=== PATIENT | male | born 2000 | race Caucasian/White ===

== ENCOUNTER 2020-03-10 11:08 | Emergency (ER) | payer SELFPAY ==
[2020-03-10 11:18] VITALS: BP 170/95; PULSE 113; RESP 18; TEMP 36.6; O2SAT 98; BMI 35.9
--- NOTE | 2020-03-10 11:28 | W.ED.MALEGU ---
HPI - Male Genitourinary General: Chief complaint: Urogenital-Male Stated complaint: genital area bleeding Time Seen by Provider: 03/10/20 11:21 History of Present Illness: HPI Narrative: 20-year-old male complaining of blood in his underwear. He also noticed it when he wiped when he passes gas. Denies any dysuria urgency or frequency no pain with bowel movement or blood with bowel movement. He states this started about a week ago started draining last couple of days he has not had a fever does report quite a bit of discomfort for this is not had anything like it in the past. Been taking [id number] antipyretics and pain medications with moderate relief MD Complaint: other (Perirectal abscess) Onset (ago): week(s) (1) Duration: progressively worsening Severity: severe Quality: burning Exacerbating factors: palpation Associated symptoms: Reports discharge (Spontaneously open and draining); Deny dysuria, fevers/chills, nausea, rash or urinary incontinence Review of Systems Const: Denies: fever(s), chills, body aches, change in appetite, fatigue or malaise ENMT: Denies: throat pain, ear or mastoid pain, nasal discharge or nasal congestion Card: Denies: chest pain, edema, dyspnea on exertion or orthopnea Resp: Denies: dyspnea, productive cough or non-productive cough GI: Denies: nausea : Denies: dysuria or urinary incontinence Skin/Breast: Denies: rash or pruritus Physical Exam Const: COMMON NORMALS: no acute distress GENERAL APPEARANCE: cooperative and comfortable ORIENTATION/CONSCIOUSNESS: Yes awake, Yes oriented to person, Yes oriented to place and Yes oriented to time HENMT: COMMON NORMALS: normocephalic and atraumatic HEAD & SCALP: normocephalic and atraumatic Eye: COMMON NORMALS: Equal, round and reactive pupils present, EOMs intact bilaterally, conjunctivae normal and no scleral icterus CONJUNCTIVA: Yes conjunctivae normal PUPIL: Yes Equal, round and reactive pupils present Neck/C-Spine: COMMON NORMALS: full ROM, no lymphadenopathy, supple and no JVD Lymph: LYMPHATIC: no lymphadenopathy noted and no lymphedema noted Resp: COMMON NORMALS: normal respiratory effort, No retractions, No use of accessory muscles and clear to auscultation bilaterally AUSCULTATION: clear to auscultation bilaterally Cardio: COMMON NORMALS: no JVD, regular rate, regular rhythm and No murmurs present (Cardio) RATE: regular rate RHYTHM: regular rhythm GI: COMMON NORMALS: Soft to palpation and No hepatosplenomegaly present AUSCULTATION: Yes normoactive bowel sounds PALPATION: Yes Soft to palpation, No Tenderness to palpation present (GI), No Guarding due to palpation present (GI) and Yes No hepatosplenomegaly present : OTHER: Examination perirectal area patient is a foul-smelling purulent drainage on the raphae between the rectum and the base of the scrotum. Is difficult to assess he is quite touchy's will not allow much for an exam. Extremity: COMMON NORMALS: normal to inspection, capillary refill normal, no clubbing, cyanosis or edema, no calf tenderness and no pedal edema Neuro: SENSORIUM/ORIENTATION: Yes oriented to person, Yes oriented to place and Yes oriented to time Skin: COMMON NORMALS: no rashes or lesions noted GENERAL SKIN EXAM: no rashes or lesions noted Course Vital Signs: Vital signs: Vital Signs Temperature 97.8 F 03/10/20 11:18 Pulse Rate 104 H 03/10/20 15:00 Respiratory Rate 18 03/10/20 15:15 Blood Pressure 138/78 03/10/20 15:00 Pulse Oximetry 98 03/10/20 15:15 MDM - Male MDM Narrative: Medical decision making narrative: I asked Dr. Gilbert to review the CT it is a rather odd appearing abscess most of it appears to be outside the floor the pelvis there is one area that tracks up above it he did look at it he did not feel was amenable to drainage will give patient dose of Zosyn here start him on Augmentin home follow with primary care doctor in [place] in the next few days he is going home today tomorrow. Lab Data: Labs: Lab Results 03/10/20 03/10/20 03/10/20 Range/Units 11:45 11:45 11:50 WBC 11.2 H (4.0-10.0) 10^3/ uL RBC 5.28 (4.1-5.3) 10^6/u L Hgb 13.6 (11.7-16.6) g/dL Hct 44.0 (42.0-52.0) % MCV 83.3 (80-94) fL MCH 25.8 L (28.0-34.0) pg MCHC 30.9 (30.0-36.0) g/dL RDW 14.4 (12.1-15.1) % Plt Count 242 (130-400) 10^3/c mm MPV 11.4 H (7.4-10.4) fL Neut % (Auto) 73.2 % Lymph % (Auto) 14.8 % [place] % (Auto) 8.7 % Eos % (Auto) 2.4 % Baso % (Auto) 0.5 % Neut # (Auto) 8.17 H (1.8-7.7) 10^3/u L Lymph # (Auto) 1.7 (0.8-4.8) 10^3/u L [place] # (Auto) 1.0 H (0.2-0.9) 10^3/u L Eos # (Auto) 0.3 (0.0-0.8) 10^3/u L Baso # (Auto) 0.1 (0.0-0.1) 10^3/u L Nucleated RBC % (a uto) 0 % Nucleated RBCs # 0.0 /100WBC Sodium 137 (136-145) mmol/L Potassium 4.1 (3.5-5.1) mmol/L Chloride 102 (98-107) mmol/L Carbon Dioxide 25 (22-29) mmol/L Anion Gap 14.1 (5-19) BUN 11 (6-20) mg/dL Creatinine 0.8 (0.7-1.2) mg/dL GFR Calculation 120.9 (90-130) mL/min Glucose 117 H (65-115) mg/dL Calculated Osmolal ity 281 L (285-295) mOsm/k g Lactic Acid 1.3 (0.5-2.2) mmol/L Calcium 9.2 (8.5-10.5) mg/dL Total Bilirubin 0.2 (0.15-1.2) mg/dL AST 18 (0-40) U/L ALT 22 (0-41) U/L Alkaline Phosphata se 73 (40-130) IU/L Total Protein 8.3 (6.6-8.7) g/dL Albumin 4.2 (3.5-5.2) g/dL Globulin 4.1 (1.3-4.6) g/dL Urine Color (Yellow) Urine Appearance (CLEAR) Urine pH (5-7) Ur Specific Gravit y (1.005-1.030) Urine Protein (Negative) Urine Glucose (UA) (Normal) Urine Ketones (Negative) Urine Blood (Negative) Urine Nitrate (Negative) Urine Bilirubin (NEGATIVE) Urine Urobilinogen (Negative) mg/dL Ur Leukocyte Randee ase (Negative) 03/10/20 Range/Units 12:14 WBC (4.0-10.0) 10^3/ uL RBC (4.1-5.3) 10^6/u L Hgb (11.7-16.6) g/dL Hct (42.0-52.0) % MCV (80-94) fL MCH (28.0-34.0) pg MCHC (30.0-36.0) g/dL RDW (12.1-15.1) % Plt Count (130-400) 10^3/c mm MPV (7.4-10.4) fL Neut % (Auto) % Lymph % (Auto) % [place] % (Auto) % Eos % (Auto) % Baso % (Auto) % Neut # (Auto) (1.8-7.7) 10^3/u L Lymph # (Auto) (0.8-4.8) 10^3/u L [place] # (Auto) (0.2-0.9) 10^3/u L Eos # (Auto) (0.0-0.8) 10^3/u L Baso # (Auto) (0.0-0.1) 10^3/u L Nucleated RBC % (a uto) % Nucleated RBCs # /100WBC Sodium (136-145) mmol/L Potassium (3.5-5.1) mmol/L Chloride (98-107) mmol/L Carbon Dioxide (22-29) mmol/L Anion Gap (5-19) BUN (6-20) mg/dL Creatinine (0.7-1.2) mg/dL GFR Calculation (90-130) mL/min Glucose (65-115) mg/dL Calculated Osmolal ity (285-295) mOsm/k g Lactic Acid (0.5-2.2) mmol/L Calcium (8.5-10.5) mg/dL Total Bilirubin (0.15-1.2) mg/dL AST (0-40) U/L ALT (0-41) U/L Alkaline Phosphata se (40-130) IU/L Total Protein (6.6-8.7) g/dL Albumin (3.5-5.2) g/dL Globulin (1.3-4.6) g/dL Urine Color Yellow (Yellow) Urine Appearance Clear (CLEAR) Urine pH 6 (5-7) Ur Specific Gravit y 1.010 (1.005-1.030) Urine Protein Neg (Negative) Urine Glucose (UA) Norm (Normal) Urine Ketones Negative (Negative) Urine Blood Neg (Negative) Urine Nitrate Negative (Negative) Urine Bilirubin Neg (NEGATIVE) Urine Urobilinogen Norm (Negative) mg/dL Ur Leukocyte Randee ase Negative (Negative) Discharge Plan Discharge Patient Disposition: Home Clinical Impression: Abscess, perirectal Condition: Stable Prescriptions: New Augmentin 875-125 mg tablet 1 tab PO BID Qty: 20 RF: 0 No Action ibuprofen 200 mg Tablet 400 - 800 mg PO PRN RF: 0 Discharge Orders: Discharge Order (Routine); Ordered 03/10/20 Ordered By: Alberto Modi Referrals: Nitish Gilbert MD [Physician] - (preirectal abcess) Discharge Diet: Usual diet Discharge Activity: Increase activity as tolerated Activity Restrictions/Additional Instructions: Follow-up with Dr. Gilbert in 2 to 3 days on perirectal abscess Coding Level of Care Code ED Machine Maintenance Supervisor for Lai Anguiano
--- NOTE | 2020-03-10 11:35 | CT_ITS ---
WS: [id number] CT pelvis TECHNIQUE: Contrast-enhanced CT of the pelvis with coronal and sagittal reformatted images. CLINICAL INFORMATION: rectal bleeding and draining perirectal abscess COMPARISON: None. DLP: 2594.[address] scans at [facility] use at least one of these dose optimization techniques: automat ed exposure control; mA and/or kV adjustment per patient size (includes targeted exams where dose is matched to clinical indication); or iterative reconstruction. FINDINGS: Normal filling of the distal ureters. Contrast in bladder. Normal-appearing bladder. Normal prostate. A few prominent inguinal lymph nodes likely reactive. No periaortic lymphadenopathy. Mild inflammatory stranding along the perineum with a thin fluid collection. This is probably not leigh inable. Small amount of fluid and induration measures approximately 3.2 x 0.8 cm. Inflammatory strand ing extends to the left aspect of the rectum with a tiny connection eccentric to the left. Mild infla mmatory stranding and edema in the perirectal soft tissues. IMPRESSION: 1. Small amount of inflammatory stranding extending from the left aspect of the rectum with a tiny f luid collection measuring 3.2 x 0.8 cm along the perineum. 2. Small amount of surrounding induration with inflammatory stranding in the perianal soft tissues. 3. No free fluid in the pelvis. Normal bladder and prostate. 4. Normal sigmoid colon. 5. A few prominent inguinal lymph nodes likely reactive. Attempted notification Alberto Modi DO at 03/10/2020 1:28 PM.
[2020-03-10 12:13] LABS: Basophils # 0.1 10^3/uL (0.0-0.1); Basophils % 0.5 %; Eosinophils # 0.3 10^3/uL (0.0-0.8); Eosinophils % 2.4 %; Hemoglobin 13.6 g/dL (11.7-16.6); Lymphocytes # 1.7 10^3/uL (0.8-4.8); Lymphocytes % 14.8 %; Mean Corpuscular HGB Conc 30.9 g/dL (30.0-36.0); Mean Corpuscular Hemoglobin 25.8 pg (28.0-34.0); Mean Corpuscular Volume 83.3 fL (80-94); Mean Platelet Volume 11.4 fL (7.4-10.4); Monocytes % 8.7 %; Neutrophils # 8.17 10^3/uL (1.8-7.7); Neutrophils % 73.2 %; Nucleated Red Blood Cells % 0 %; Platelet Count 242 10^3/cmm (130-400); Red Blood Count 5.28 10^6/uL (4.1-5.3); Red Cell Distribution Width 14.4 % (12.1-15.1); White Blood Count 11.2 10^3/uL (4.0-10.0)
[2020-03-10 12:21] LABS: Add Urine Microscopic? NO
[2020-03-10 12:25] LABS: Bilirubin Urine Neg (NEGATIVE); Blood Urine Neg (Negative); Glucose Urine UA Norm (Normal); Ketones Urine Negative (Negative); Leukocyte Esterase Urine Negative (Negative); Nitrate Urine Negative (Negative); Protein Urine Neg (Negative); Urine Appearance Clear (CLEAR); Urine Color Yellow (Yellow); Urobilinogen Urine Norm (Negative); pH Urine 6 (5-7)
[2020-03-10 12:27] LABS: Lactic Sepsis W/Reflex 1.3 mmol/L (0.5-2.2)
[2020-03-10 12:34] LABS: Alanine Aminotransferase 22 U/L (0-41); Albumin Level 4.2 g/dL (3.5-5.2); Alkaline Phosphatase 73 IU/L (40-130); Anion Gap 14.1 (5-19); Aspartate Amino Transferase 18 U/L (0-40); Blood Urea Nitrogen 11 mg/dL (6-20); Calcium 9.2 mg/dL (8.5-10.5); Carbon Dioxide 25 mmol/L (22-29); Chloride 102 mmol/L (98-107); Globulin 4.1 g/dL (1.3-4.6); Glomerular Filtration Rate 120.9 mL/min (90-130); Glucose 117 mg/dL (65-115); Osmolality Calculated 281 mOsm/kg (285-295); Potassium 4.1 mmol/L (3.5-5.1); Sodium 137 mmol/L (136-145); Total Bilirubin 0.2 mg/dL (0.15-1.2); Total Protein 8.3 g/dL (6.6-8.7)
[2020-03-10] MEDS: sodium chloride 0.9% 1,000 ML 999 ML IV (12:38)
[2020-03-10] MEDS: iohexol 300 mg/mL 100 mL Btl IV (12:42)
[2020-03-10 15:00] VITALS: BP 138/78; PULSE 104; RESP 18; O2SAT 100
[2020-03-10] MEDS: ondansetron 2 mg/ML SDV 2 mL 4 MG IVP (15:13)
[2020-03-10 15:15] VITALS: RESP 18; O2SAT 98
[2020-03-10] MEDS: morphine 4 mg/mL SDV 1 mL IVP (15:15)
[2020-03-10] MEDS: piperacillin-tazobactam 3.375 GM in sodium chloride 0.9% (plus) 50 ML IV (15:18)
[2020-03-10 16:02] VITALS: BP 138/78; PULSE 98; RESP 18; TEMP 36.6; O2SAT 99
== END 2020-03-10 16:02 | disposition home or self-care (01) ==
PROVIDERS: Emergency Provider Family Medicine
DX: K61.1 Rectal abscess (principal)
CPT/HCPCS: 12345; 36415; 72193; 80053; 81003; 83605; 85025; 87040; 87205; 96360; 96361; 96365; 96375; 99283; J2270; J2405; J2543; J7030; Q9967

== ENCOUNTER 2020-05-12 10:37 | Emergency (ER) | payer MEDICAID, SELFPAY ==
[2020-05-12 11:39] VITALS: BP 137/78; PULSE 109; RESP 16; TEMP 36.6; O2SAT 100; BMI 36.9
--- NOTE | 2020-05-12 12:43 | ED_ITS ---
HPI - Skin/Abscess/Foreign Bdy General: Chief complaint: Skin/Abscess/Foreign Body Stated complaint: abscess on back Time Seen by Provider: 05/12/20 12:42 Source: patient Mode of arrival: ambulatory Limitations: no limitations History of Present Illness: HPI narrative: Patient is a 20-year-old male who presents to ED today with complaint of an abscess near his buttocks. Patient states he has noticed abscess over the past few days. It is not been draining. He has not been running fevers. complaint: abscess/boil Onset (ago): day(s) Tetanus up to date: yes Location: buttocks Severity: mild Relieving factors: none Exacerbating factors: none Context: none Associated symptoms: Reports no associated symptoms; Deny chills or fever(s) Treatments prior to arrival: none Review of Systems Const: Denies: fever(s), chills, body aches, fatigue or malaise Skin/Breast: Reports: other (abscess) FOR[facility]LY [facility], [facility]–1983 ED PFSH: Social History (Updated 05/12/20 @ 11:44 by Julio Whitney RN) Smoking and tobacco status: never smoked Alcohol intake: never Substance/Drug Use: never Physical Exam Const: COMMON NORMALS: no acute distress, patient oriented x3, no limitations and alert NUTRITIONAL APPEARANCE: obese Resp: COMMON NORMALS: normal respiratory effort and clear to auscultation bilaterally AUSCULTATION: clear to auscultation bilaterally Cardio: COMMON NORMALS: regular rate and regular rhythm RATE: regular rate RHYTHM: regular rhythm Neuro: COMMON NORMALS: patient oriented x3 SENSORIUM/ORIENTATION: Yes alert Skin: OTHER: Patient with erythematous area to the right superior gluteal cleft consistent with a pilonidal cyst/abscess. There is no definitive fluctuance to suggest that an I&D would be successful at this time Course Vital Signs: Vital signs: Vital Signs Temperature 97.9 F 05/12/20 11:39 Pulse Rate 86 05/12/20 13:35 Respiratory Rate 18 05/12/20 13:35 Blood Pressure 137/78 05/12/20 11:39 Pulse Oximetry 99 05/12/20 13:35 MDM - Skin/Abscess/Foreign Bdy MDM Narrative: Medical decision making narrative: Patient will be placed on Bactrim and we will get him follow-up with general surgery for possible excision. Patient was aware he may need to return to the emergency department prior to this appointment if abscess continues to worsen despite antibiotic therapy. Discharge Plan Discharge Patient Disposition: Home Clinical Impression: Pilonidal cyst with abscess Condition: Stable Prescriptions: New Bactrim DS 800-160 mg tablet 2 tab PO BID 7 Days Qty: 28 RF: 0 No Action ibuprofen 200 mg Tablet 400 - 800 mg PO PRN RF: 0 Augmentin 875-125 mg tablet 1 tab PO BID Qty: 20 RF: 0 Discharge Orders: Discharge Order (Routine); Ordered 05/12/20 Ordered By: Alissa Miller Patient Instructions: Pilonidal Cyst (GEN), Pilonidal Disease Activity Restrictions/Additional Instructions: As discussed please start your antibiotics immediately. Case management should contact you shortly to set you up with a general surgery appointment for evaluation. You may do warm compresses and Epson salt soaks multiple times a day. Return to the emergency department for worsening pain, swelling, drainage, fevers, or any other concerns you may have. Discharge Date/Time: 05/12/20 13:36 Coding Level of Care Code ED Vocational Technical Education Teacher for Lai Anguiano
[2020-05-12 13:35] VITALS: PULSE 86; RESP 18; O2SAT 99
--- NOTE | 2020-05-12 13:38 | DCPLANNER ---
manager utility had message to schedule a follow up appointment for patient with general surgery. manager utility called [facility], spoke with Jenny, gave clinic patients information. manager utility was told that patients information would be printed and reviewed. Clinic will call patient with appointment information.
--- NOTE | 2020-05-17 12:12 | DCPLANNER ---
Patient has a follow up appointment scheduled for Saturday, May 20, [address] at 10:[address] Rooney. Clinic will call patient with appointment information.
--- NOTE | 2020-05-23 14:50 | DCPLANNER ---
Patient had a follow up appointment scheduled for 05.20.20 with [facility] - patient did attend appointment.
== END 2020-05-12 13:36 | disposition home or self-care (01) ==
PROVIDERS: Emergency Provider Physician Assistant
DX: L05.01 Pilonidal cyst with abscess (principal)
CPT/HCPCS: 12345; 99281; 99282

== ENCOUNTER → 2020-05-21 14:59 | Outpatient (BNVA) | payer OTHER, SELFPAY | PROVIDERS: Visit Provider Surgery | DX: Z11.59 Encounter for screening for other viral diseases (principal) | CPT/HCPCS: 87635 ==